=== PATIENT | male | born 1965 | race Caucasian/White ===

== ENCOUNTER → 2020-11-19 00:29 | Outpatient (CLI) | payer OTHER, SELFPAY ==
[2020-11-19 18:32] LABS: SARS-CoV-2 RNA PCR Negative
== END ==
PROVIDERS: PCP Family Medicine; Visit Provider Internal Medicine Gastroenterology
DX: Z01.812 Encounter for preprocedural laboratory examination (principal); Z20.822 Contact with and (suspected) exposure to COVID-19
CPT/HCPCS: C9803; U0003; U0005

== ENCOUNTER 2020-11-22 00:47 | Day surgery (SDC) | payer OTHER, SELFPAY ==
[2020-11-14 09:33] VITALS: BMI 27.6
[2020-11-22 09:55] VITALS: BP 114/80; PULSE 79; RESP 20; TEMP 36.6; O2SAT 98
[2020-11-22] MEDS: LACTATED RINGERS 1,000 ML 150 ML IV CONT (10:12)
--- NOTE | 2020-11-22 10:20 | WPDANESEPPF ---
Anes - Initial Pre Proc Eval Procedure: Operation Date: 11/22/20 11:00 Proposed Procedures p Esophagogastroduodenoscopy & Screening Colonoscopy - Jason Henderson MD Date/Time: 11/22/20 10:20 Surgeon: Jason Henderson MD Pre Op Diagnosis: Epigastric Pain, Neoplasm Screening Patient Data Age: 55 Gender: M Height: 5 ft 7 in Weight: 78.7 kg Last Vital Signs Temp 36.6 C 11/22/20 09:55 Pulse 79 11/22/20 09:55 Resp 20 11/22/20 09:55 BP 114/80 11/22/20 09:55 Pulse Ox 98 11/22/20 09:55 Allergies Allergy/AdvReac Type Severity Reaction Status Date / Time Sulfa (Sulfonamide Allergy Unknown Verified 11/22/20 09:52 Antibiotics) Home Medications Medication Instructions Recorded Confirmed Type aspirin 81 mg tablet,delayed 81 mg PO DAILY 10/01/20 11/14/20 History release doxycycline hyclate 100 mg capsule 100 mg PO DAILY 10/01/20 11/14/20 History rosuvastatin 10 mg tablet 10 mg PO DAILY 10/01/20 11/14/20 History metoprolol succinate 25 mg 12.5 mg PO BID 10/14/20 11/14/20 History tablet,extended release 24 hr Patient hx anesthesia problems: none Family hx anesthesia problems: none PMFSH Past Medical History Medical History Abdominal pain Chest pain Hyperlipidemia SVT (supraventricular tachycardia) Surgical History Surgical History (Updated 11/22/20 @ 10:21 by Román Orozco MD) S/P ablation of accessory bypass tract Social History Social History Smoking packs per day: 1 Smoking cigarettes per day: 20.0 Years smoked: 20 Smoking pack-years: 20.00 Smoking status: Former smoker Tobacco type: cigarettes Alcohol intake: never Substance use: never Substance use type: does not use Living arrangements: with family Spiritual care concerns: No Anes - Eval Final PreProcedure Day of Procedure 11/22/20 10:20 Patient weight: overweight Heart: regular rate and rhythm Lungs: clear to auscultation Airway: Mallampati scale class II Neurological: alert and oriented Last oral intake: >/= 8 hours ASA classification: II Emergent: no Anesthetic plan: proceed Anesthesia type and monitoring: general GIVS and standard monitoring Informed Consent: The patient's anesthetic plan and its attendant risks and benefits were discussed with the patient/family/POA. Questions were solicited and answers provided to the satisfaction of the patient/family/POA.
--- NOTE | 2020-11-22 10:48 | PM.HPGS ---
History of Present Illness History of Present Illness Consent: Risks, benefits, and alternatives have been discussed and questions answered. Patient agrees to proceed with procedure. Chief complaint: Epigastric Pain, Neoplasm Screening Narrative: Davin Moe is a 55 year old male with mid abdominal pain and bloating, worse after eating, omeprazole not helping. Also never had a colonoscopy. CT scan with small umbilical hernia Review of Systems Constitutional: Constitutional: Denies headache(s) and Denies weakness Eyes: Eyes: Denies blurry vision ENT: Reports Normal hearing present, Denies headache(s) and Denies neck pain Cardiovascular: Cardiovascular: Denies chest pain and Denies dyspnea Respiratory: Respiratory: Denies dyspnea Gastrointestinal: Gastrointestinal: Reports no additional gastrointestinal complaints Genitourinary: Genitourinary: Denies dysuria Musculoskeletal: Musculoskeletal: Denies neck pain Integumentary/Breasts: Skin/Breast: Denies dry skin Neurologic: Reports Normal hearing present, Denies headache(s) and Denies weakness Psychiatric: Psychiatric: Denies anxiety Endocrine: Endocrine: Denies change in body appearance Hematologic/Lymphatic: Hematologic/Lymphatic: Denies easy bleeding Allergic/Immunologic: Allergic/Immunologic: Denies urticaria PMFSH Past Medical History Medical History Abdominal pain Chest pain Hyperlipidemia SVT (supraventricular tachycardia) Surgical History Surgical History (Updated 11/22/20 @ 10:21 by Román Orozco MD) S/P ablation of accessory bypass tract Social History Social History Smoking packs per day: 1 Smoking cigarettes per day: 20.0 Years smoked: 20 Smoking pack-years: 20.00 Smoking status: Former smoker Tobacco type: cigarettes Alcohol intake: never Substance use: never Substance use type: does not use Living arrangements: with family Spiritual care concerns: No Meds Home Medications and Allergies Home Medications Medication Instructions Recorded Confirmed Type aspirin 81 mg tablet,delayed 81 mg PO DAILY 10/01/20 11/14/20 History release doxycycline hyclate 100 mg capsule 100 mg PO DAILY 10/01/20 11/14/20 History rosuvastatin 10 mg tablet 10 mg PO DAILY 10/01/20 11/14/20 History metoprolol succinate 25 mg 12.5 mg PO BID 10/14/20 11/14/20 History tablet,extended release 24 hr Allergies Allergy/AdvReac Type Severity Reaction Status Date / Time Sulfa (Sulfonamide Allergy Unknown Verified 11/22/20 09:52 Antibiotics) Vital Signs Vital Signs - 24 hr 11/22/20 09:55 Temperature 97.8 F Pulse Rate 79 Respiratory Rate 20 Blood Pressure 114/80 Pulse Oximetry 98 Exam Const: General: comfortable and no acute distress HENMT: General nose exam: Normal nares present Eyes: General: appearance normal, both eyes and all related structures Neck: Neck: no JVD Resp: Auscultation: clear to auscultation bilaterally Cardio: Rate: regular rate Rhythm: regular rhythm GI: Inspection: non-distended GI Palp: Yes Soft to palpation Skin: General skin exam: normal color Neuro: General: gait normal Speech: normal speech Extrem: General: normal to inspection Psych: Mental Status: mental status grossly normal Assessment and Plan Assessment and plan (1) Abdominal pain: Code(s): R10.9 - Unspecified abdominal pain Status: Inactive Assessment and Plan: egd with bx (2) Bloating: Code(s): R14.0 - Abdominal distension (gaseous) Status: Acute (3) Colon cancer screening: Code(s): Z12.11 - Encounter for screening for malignant neoplasm of colon Status: Acute Assessment and Plan: colonoscopy
[2020-11-22 11:18] VITALS: BP 104/70; PULSE 75; RESP 18; O2SAT 95
[2020-11-22 11:28] VITALS: BP 106/70; PULSE 80; RESP 21; O2SAT 97
[2020-11-22 11:38] VITALS: BP 110/68; PULSE 66; RESP 25; O2SAT 96
== END 2020-11-22 11:48 | disposition home or self-care (01) ==
PROVIDERS: PCP Family Medicine; Visit Provider Internal Medicine Gastroenterology
PROC: 0DJ08ZZ Inspection of Upper Intestinal Tract, Via Natural or Artificial Opening Endoscopic (ICD-10-PCS; CPT 43235; principal; 2020-11-22 11:00)
DX: Z12.11 Encounter for screening for malignant neoplasm of colon (principal); K63.5 Polyp of colon; K57.30 Diverticulosis of large intestine without perforation or abscess without bleeding; K64.8 Other hemorrhoids; K29.50 Unspecified chronic gastritis without bleeding; E78.5 Hyperlipidemia, unspecified; I47.1 Supraventricular tachycardia; Z79.82 Long term (current) use of aspirin; Z87.891 Personal history of nicotine dependence
CPT/HCPCS: 45385; 88305; C9803; J2704; J7120; U0003; U0005

== ENCOUNTER 2020-12-09 06:45 | Outpatient (CLI) | payer OTHER, SELFPAY ==
--- NOTE | ~2020-12-09 | NM_ITS ---
EXAM: NM gastric emptying study DATE: 12/09/2020 11:53 INDICATION: Abdominal distention. TECHNIQUE: A gastric emptying study was performed using the methodology of Kari LLOYD, et al. J Nucl Med 2007; 48:568-572. The patient was given a meal consisting of 2 scrambled eggs labeled with 0.981 mCi Tc-99m sulfur colloid, 2 slices of toast, two packages of jam, and approximately 120 mL of water . Simultaneous anterior and posterior 1-min images of the abdomen were obtained with the patient supi ne at multiple time points over a total period of 4 hours. The geometric mean of anterior and posteri or views was determined, and the percentage retention was calculated for each time point. COMPARISON: None. FINDINGS: Gastric retention of the radiotracer-labeled meal was 41%, 8%, and 4% at the 1-hour, 2-jerry r, and 4-hour time points, respectively. With this technique, apparent rapid gastric emptying is sugg ested by <30% gastric retention at 1 hour. Delayed gastric emptying is defined by gastric retention o f >90% at 1 hour, >60% retention at 2 hours, or >10% retention at 4 hours. IMPRESSION: 1. Normal gastric emptying. Reviewed, dictated and finalized at location A. IMPRESSION: 1. Normal gastric emptying.
== END 2020-12-09 06:46 | disposition home or self-care (01) ==
PROVIDERS: PCP Family Medicine; Visit Provider Internal Medicine Gastroenterology
DX: R14.0 Abdominal distension (gaseous) (principal); R10.9 Unspecified abdominal pain
CPT/HCPCS: 78264; A9541

== ENCOUNTER 2021-08-22 09:51 | Outpatient (CLI) | payer OTHER, SELFPAY ==
[2021-08-22 10:35] LABS: SARS-CoV-2 RNA PCR Positive (Negative)
== END 2021-08-22 09:52 | disposition home or self-care (01) ==
PROVIDERS: PCP Family Medicine; Visit Provider Family Medicine
DX: U07.1 COVID-19 (principal)
CPT/HCPCS: C9803; U0003; U0005